=== PATIENT | female | born 1990 | race Caucasian/White ===

== ENCOUNTER 2017-09-25 23:38 | Emergency (ER) | payer OTHER ==
[~2017-09-25] VITALS: Ht 175.3 cm; Wt 72.6 kg
[~2017-09-25 23:38] MED LIST: ACYC400 PO; ALBU90OI INH; AZIT250 PO; Acidophilus La100 GM; BENZ100A PO; BIOTIN2500 MCG PO; CIPR500 PO; CODACE30 PO; CYCL10 PO; DOCU100 PO; Diflucan150 MG PO; Epipen0.3 MG/0.3 IM; FAMO20 PO; Flagyl500 MG PO; HYDACE5 PO; IBUP600 PO; IBUP800 PO; MULVITMIND PO; NAPR500 PO; NICO21TP; OXYACE5T PO; PHENA200 PO; PRED20 PO; PROM25 PO; Pepcid40 MG PO; Prednisone20 MG PO; RXHYDACE PO; SULTRIDS PO; Verotin-Gr Cap1 EACH PO; Vibramycin100 MG PO; Zithromax250 MG PO; Zofran Odt4 MG SL; [UNRECOGNIZED DRUG - OTHER]
[2017-09-26] MEDS ORDERED: CEPH500 PO (16:45)
[2018-02-04] MEDS ORDERED: Flagyl500 MG PO (20:29)
[2018-02-04] MEDS ORDERED: Diflucan100 MG PO (20:29)
[2018-05-31] MEDS ORDERED: Flagyl500 MG PO (18:41)
[2018-05-31] MEDS ORDERED: Diflucan100 MG PO (18:41)
== END 2017-09-26 02:35 | disposition left against medical advice (07) ==
LOC: ER 23:38
DX: Z53.21 Procedure and treatment not carried out due to patient leaving prior to being seen by health care provider (principal)

== ENCOUNTER 2017-09-26 15:58 | Emergency (ER) | payer OTHER ==
[~2017-09-26] VITALS: Ht 175.3 cm; Wt 72.6 kg
[2017-09-26] MEDS ORDERED: CEPH500 PO (16:45)
[2018-02-04] MEDS ORDERED: Diflucan100 MG PO (20:29)
[2018-02-04] MEDS ORDERED: Flagyl500 MG PO (20:29)
[2018-05-31] MEDS ORDERED: Flagyl500 MG PO (18:41)
[2018-05-31] MEDS ORDERED: Diflucan100 MG PO (18:41)
== END 2017-09-26 17:01 | disposition home or self-care (01) ==
LOC: ER 15:58
DX: T81.4XXA Infection following a procedure, initial encounter (principal); N76.0 Acute vaginitis; F17.210 Nicotine dependence, cigarettes, uncomplicated; Z79.899 Other long term (current) drug therapy
CPT/HCPCS: 99282

== ENCOUNTER 2017-11-02 17:20 | Emergency (ER) | payer OTHER ==
[~2017-11-02] VITALS: Ht 175.3 cm; Wt 70.8 kg
[~2017-11-02 17:20] MED LIST changes: +CEPH500 PO
[2017-11-02] MEDS ORDERED: CHOL10002 (17:29)
[2017-11-02] MEDS ORDERED: PROBIOTIC1 EAC3 PO (17:29)
[2017-11-02] MEDS ORDERED: Keflex500 MG PO (17:46)
[2017-11-02] MEDS ORDERED: Pyridium100 MG PO (17:46)
[2017-11-02 18:06] LABS: Source, Urine Voided
[2017-11-02 18:10] LABS: Appearance, Urine Hazy (Clear); Bilirubin, Urine Neg (Neg); Blood, Urine 1+ (Neg); Color, Urine Yellow (P-Yellow); Glucose Qualitative, Urine Neg (Neg); Ketones, Urine Neg (Neg); Leukocyte Esterase, Urine 3+ (Neg); Nitrite, Urine Neg (Neg); Protein, Urine 2+ (Neg); Urobilinogen, Urine NORM (Normal)
[2017-11-02 18:38] LABS: White Blood Cells, Urine 25-50 /hpf (0-5)
[2017-11-02 18:39] LABS: Bacteria Many /hpf; Squamous Epithelial Cells Mod /hpf (Few)
[2018-02-04] MEDS ORDERED: Diflucan100 MG PO (20:29)
[2018-02-04] MEDS ORDERED: Flagyl500 MG PO (20:29)
[2018-05-31] MEDS ORDERED: Flagyl500 MG PO (18:41)
[2018-05-31] MEDS ORDERED: Diflucan100 MG PO (18:41)
== END 2017-11-02 17:50 | disposition home or self-care (01) ==
LOC: ER 17:20
PROVIDERS: Nurse Practitioner Family
DX: N39.0 Urinary tract infection, site not specified (principal); Z91.09 Other allergy status, other than to drugs and biological substances
CPT/HCPCS: 81001; 81025; 87086; 99283

== ENCOUNTER 2017-11-15 12:23 | Emergency (ER) | payer OTHER ==
[~2017-11-15] VITALS: Ht 175.3 cm; Wt 70.8 kg
[~2017-11-15 12:23] MED LIST changes: +CHOL10002; +Keflex500 MG PO; +PROBIOTIC1 EAC3 PO; +Pyridium100 MG PO
[2017-11-15] MEDS ORDERED: ACYC400 PO (12:47)
[2017-11-15 12:50] LABS: Source, Urine Clean Catch
[2017-11-15 12:59] LABS: Bilirubin, Urine Neg (Neg); Blood, Urine Neg (Neg); Glucose Qualitative, Urine Neg (Neg); Ketones, Urine Neg (Neg); Leukocyte Esterase, Urine 2+ (Neg); Nitrite, Urine Neg (Neg); Protein, Urine Neg (Neg); Urobilinogen, Urine NORM (Normal)
[2017-11-15 13:10] LABS: Appearance, Urine Clear (Clear); Color, Urine Yellow (P-Yellow)
[2017-11-15 13:12] LABS: Bacteria Mod /hpf; Red Blood Cells, Urine Not Seen /hpf (0-2); Squamous Epithelial Cells Many /hpf (Few)
[2017-11-15] MEDS ORDERED: Diflucan150 MG PO (13:20)
[2018-02-04] MEDS ORDERED: Flagyl500 MG PO (20:29)
[2018-02-04] MEDS ORDERED: Diflucan100 MG PO (20:29)
[2018-05-31] MEDS ORDERED: Flagyl500 MG PO (18:41)
[2018-05-31] MEDS ORDERED: Diflucan100 MG PO (18:41)
== END 2017-11-15 13:28 | disposition home or self-care (01) ==
LOC: ER 12:23
PROVIDERS: Physician Assistant
DX: B37.9 Candidiasis, unspecified (principal); Z88.8 Allergy status to other drugs, medicaments and biological substances; Z79.899 Other long term (current) drug therapy; F17.200 Nicotine dependence, unspecified, uncomplicated
CPT/HCPCS: 81001; 81025; 87086; 99283

== ENCOUNTER → 2017-12-31 | Outpatient (CLI) | payer OTHER ==
[2018-01-01 10:45] LABS: Candida species (DNA Probe) Negative (NEGATIVE); G. vaginalis (DNA Probe) Positive (NEGATIVE); T. vaginalis (DNA Probe) Negative (NEGATIVE)
== END ==
LOC: LAB SHORT 16:38 → LAB 16:38
PROVIDERS: Obstetrics & Gynecology
DX: N76.0 Acute vaginitis (principal)
CPT/HCPCS: 87480; 87510; 87660

== ENCOUNTER 2018-02-15 17:29 | Emergency (ER) | payer OTHER ==
[~2018-02-15] VITALS: Ht 172.7 cm; Wt 68.0 kg
[~2018-02-15 17:29] MED LIST changes: +Diflucan100 MG PO
[2018-02-15] MEDS ORDERED: Diflucan100 MG PO (17:45)
[2018-02-15] MEDS ORDERED: Flagyl500 MG PO (17:45)
== END 2018-02-15 17:53 | disposition home or self-care (01) ==
LOC: ER 17:29
DX: N76.0 Acute vaginitis (principal)
CPT/HCPCS: 99283

== ENCOUNTER 2018-03-31 16:19 | Emergency (ER) | payer OTHER ==
[~2018-03-31] VITALS: Ht 175.3 cm; Wt 59.9 kg
[2018-03-31] MEDS ORDERED: ACYC400 PO (16:30)
[2018-03-31] MEDS ORDERED: Tindamax500 MG PO (17:22)
[2018-03-31 21:49] LABS: Candida species (DNA Probe) Negative (NEGATIVE); G. vaginalis (DNA Probe) Positive (NEGATIVE); T. vaginalis (DNA Probe) Negative (NEGATIVE)
== END 2018-03-31 17:35 | disposition home or self-care (01) ==
LOC: ER 16:19
PROVIDERS: Psychiatry & Neurology Psychiatry
DX: N76.0 Acute vaginitis (principal); Z88.8 Allergy status to other drugs, medicaments and biological substances; Z79.899 Other long term (current) drug therapy; F17.200 Nicotine dependence, unspecified, uncomplicated
CPT/HCPCS: 81000; 87480; 87510; 87660; 99283

== ENCOUNTER 2018-04-20 20:50 | Emergency (ER) | payer OTHER ==
[~2018-04-20] VITALS: Ht 175.3 cm; Wt 60.3 kg
[~2018-04-20 20:50] MED LIST changes: +Tindamax500 MG PO
[2018-04-20 21:29] LABS: Source, Urine Clean Catch
[2018-04-20 21:31] LABS: Bilirubin, Urine Neg (Neg); Blood, Urine 1+ (Neg); Glucose Qualitative, Urine Neg (Neg); Ketones, Urine 1+ (Neg); Leukocyte Esterase, Urine 1+ (Neg); Nitrite, Urine Neg (Neg); Protein, Urine 2+ (Neg); Urobilinogen, Urine NORM (Normal)
[2018-04-20 21:36] LABS: Appearance, Urine Clear (Clear); Color, Urine Yellow (P-Yellow)
[2018-04-20 21:37] LABS: Bacteria Many /hpf; Mucus Mod (0-Heavy); Red Blood Cells, Urine 0-2 /hpf (0-2); Squamous Epithelial Cells Mod /hpf (Few)
[2018-04-20] MEDS ORDERED: Tindamax500 MG PO (23:03)
== END 2018-04-20 23:18 | disposition home or self-care (01) ==
LOC: ER 20:50
PROVIDERS: Emergency Medicine
DX: N76.0 Acute vaginitis (principal); Z88.8 Allergy status to other drugs, medicaments and biological substances; Z79.899 Other long term (current) drug therapy; F17.200 Nicotine dependence, unspecified, uncomplicated
CPT/HCPCS: 81001; 81025; 87086; 99283

== ENCOUNTER 2018-05-05 17:24 | Emergency (ER) | payer OTHER | END 2018-05-05 17:53 | disposition left against medical advice (07) | LOC: ER 17:24 | DX: Z53.21 Procedure and treatment not carried out due to patient leaving prior to being seen by health care provider (principal) ==

== ENCOUNTER 2018-10-14 16:49 | Emergency (ER) | payer OTHER ==
[~2018-10-14] VITALS: Ht 175.3 cm; Wt 61.7 kg
[2018-10-14] MEDS ORDERED: Flagyl500 MG PO (17:16)
== END 2018-10-14 17:31 | disposition home or self-care (01) ==
LOC: ER 16:49
DX: N76.0 Acute vaginitis (principal); N34.2 Other urethritis; F17.210 Nicotine dependence, cigarettes, uncomplicated
CPT/HCPCS: 96372; 99283-25; J0696

== ENCOUNTER → 2019-02-03 | Outpatient (CLI) | payer OTHER | END | disposition home or self-care (01) | LOC: LAB SHORT 17:32 → LAB 17:32 | DX: J02.9 Acute pharyngitis, unspecified (principal) | CPT/HCPCS: 87081 ==

== ENCOUNTER 2019-07-06 18:29 | Emergency (ER) | payer OTHER ==
[~2019-07-06] VITALS: Ht 175.3 cm; Wt 70.3 kg
[2019-07-06 18:58] LABS: Source, Urine Clean Catch
[2019-07-06 18:59] LABS: BASOPHILS ABSOLUTE AUTO 0.02 K/mm3 (0.00-0.23); BASOPHILS PERCENT AUTO 0 % (0-2); EOSINOPHILS ABSOLUTE AUTO 0.07 K/mm3 (0.00-0.68); EOSINOPHILS PERCENT AUTO 1 % (0-6); Hematocrit 40.9 % (33.0-51.0); Hemoglobin 13.7 g/dL (11.5-16.0); IMMATURE GRAN ABSOLUTE AUTO 0.01 K/mm3 (0.00-0.10); IMMATURE GRAN PERCENT AUTO 0 % (0-1); LYMPHOCYTES ABSOLUTE AUTO 2.49 K/mm3 (0.84-5.20); LYMPHOCYTES PERCENT AUTO 28 % (21-46); MONOCYTES ABSOLUTE AUTO 0.58 K/mm3 (0.16-1.47); MONOCYTES PERCENT AUTO 7 % (4-13); Mean Corpuscular HGB 32.1 pg (26.0-34.0); Mean Corpuscular HGB Conc 33.5 g/dL (31.5-36.5); Mean Corpuscular Volume 96 fL (80-100); Mean Platelet Volume 9.8 fL (9.1-12.4); NEUTROPHILS PERCENT AUTO 65 % (41-73); Platelet Count 294 K/mm3 (150-400); RDW Coefficient Variation 12.1 % (11.7-14.2); RDW Standard Deviation 42.4 fL (35.1-46.3); Red Blood Cell Count 4.27 M/mm3 (3.80-5.20); White Blood Cell Count 8.97 K/mm3 (4.00-11.30)
[2019-07-06 19:01] LABS: Bilirubin, Urine Neg (Neg); Blood, Urine Neg (Neg); Glucose Qualitative, Urine Neg (Neg); Ketones, Urine Neg (Neg); Leukocyte Esterase, Urine Neg (Neg); Nitrite, Urine Neg (Neg); Protein, Urine Neg (Neg); Urobilinogen, Urine NORM (Normal)
[2019-07-06 19:03] LABS: Appearance, Urine Clear (Clear); Color, Urine Yellow (P-Yellow)
[2019-07-06 19:33] LABS: Alanine Aminotransfer (ALT/SGP 18 U/L (12-78); Albumin, Blood 4.3 g/dL (3.4-5.0); Albumin/Globulin Ratio 1.3 (0.8-1.8); Alk Phos 48 U/L (50-136); Anion Gap 6 mmol/L (6-16); Aspartate Aminotrans (AST/SGOT 9 U/L (12-37); Beta HCG, Quantitative, Serum 920 mIU/mL (0-3); Bilirubin, Total 0.2 mg/dL (0.1-1.0); Blood Urea Nitrogen 12 mg/dL (8-24); Bun/Creatinine Ratio 17.8 (12.0-20.0); CO2, Blood 25 mmol/L (21-32); Calcium, Blood 8.9 mg/dL (8.5-10.1); Chloride, Blood 106 mmol/L (98-108); Creatinine, Blood 0.67 mg/dL (0.40-1.00); Globulin, Blood 3.3 g/dL (2.2-4.0); Glomerular Filtration Rate >60 (60-); Glucose, Blood 100 mg/dL (70-99); Potassium, Blood 3.5 mmol/L (3.5-5.5); Sodium, Blood 137 mmol/L (136-145); Total Protein, Blood 7.6 g/dL (6.4-8.2)
[2019-07-06] MEDS ORDERED: PRENATAL FORMU1 EAC2 PO (20:42)
[2019-07-06] MEDS ORDERED: Macrobid 100 M100 MG PO (20:42)
== END 2019-07-06 20:52 | disposition home or self-care (01) ==
LOC: ER 18:29
PROVIDERS: Physician Assistant
DX: O20.0 Threatened abortion (principal); O23.41 Unspecified infection of urinary tract in pregnancy, first trimester; O99.331 Smoking (tobacco) complicating pregnancy, first trimester; F17.210 Nicotine dependence, cigarettes, uncomplicated; Z91.048 Other nonmedicinal substance allergy status
CPT/HCPCS: 36415; 76801; 76817; 80053; 81003; 84702; 85025; 99283-25

== ENCOUNTER → 2019-08-05 | Outpatient (CLI) | payer OTHER ==
[~2019-08-05] MED LIST changes: +Macrobid 100 M100 MG PO; +PRENATAL FORMU1 EAC2 PO
[2019-08-05 15:20] LABS: Bilirubin, Urine Neg (Neg); Blood, Urine Neg (Neg); Glucose Qualitative, Urine Neg (Neg); Ketones, Urine Neg (Neg); Leukocyte Esterase, Urine Neg (Neg); Nitrite, Urine Neg (Neg); Protein, Urine Neg (Neg); Specific Gravity, Urine 1.015 (1.003-1.022); Urobilinogen, Urine NORM (Normal); pH, Urine 6.5 (5.0-8.0)
[2019-08-05 15:23] LABS: Color, Urine Yellow (P-Yellow)
[2019-08-05 15:24] LABS: Appearance, Urine Clear (Clear)
== END | disposition home or self-care (01) ==
LOC: LAB 11:45 → LAB SHORT 11:45
PROVIDERS: Advanced Practice Midwife
DX: R30.9 Painful micturition, unspecified (principal)
CPT/HCPCS: 81003; 87086

== ENCOUNTER → 2019-08-22 | Outpatient (CLI) | payer OTHER | END | disposition home or self-care (01) | LOC: LAB SHORT 09:29 → LAB 09:29 | DX: N76.0 Acute vaginitis (principal) | CPT/HCPCS: 87070; 87205 ==

== ENCOUNTER → 2019-08-23 | Outpatient (CLI) | payer OTHER ==
[2019-08-25 20:06] LABS: CHLAMYDIA TRACHOMATIS, NAA Negative (Negative); NEISSERIA GONORRHOEAE, NAA Negative (Negative)
== END | disposition home or self-care (01) ==
LOC: LAB SHORT 18:02 → LAB 18:02
PROVIDERS: Advanced Practice Midwife
DX: Z36.89 Encounter for other specified antenatal screening (principal)
CPT/HCPCS: 87491; 87591; G0123

== ENCOUNTER → 2019-09-10 | Outpatient (CLI) | payer OTHER | END | disposition home or self-care (01) | LOC: LAB SHORT 16:52 → LAB EV 16:52 | DX: J02.9 Acute pharyngitis, unspecified (principal) | CPT/HCPCS: 87081 ==

== ENCOUNTER → 2020-02-02 | Outpatient (CLI) | payer OTHER | LOC: LAB SHORT 10:48 → LAB 10:48 | DX: Z34.83 Encounter for supervision of other normal pregnancy, third trimester (principal) | CPT/HCPCS: 87081; 87653 ==

== ENCOUNTER 2020-02-22 20:20 | Inpatient (IN) | payer OTHER ==
[~2020-02-22] VITALS: Ht 175.3 cm; Wt 77.1 kg
[2020-02-22 21:16] LABS: BASOPHILS ABSOLUTE AUTO 0.03 K/mm3 (0.00-0.23); BASOPHILS PERCENT AUTO 0 % (0-2); EOSINOPHILS ABSOLUTE AUTO 0.09 K/mm3 (0.00-0.68); EOSINOPHILS PERCENT AUTO 1 % (0-6); Hematocrit 38.6 % (33.0-51.0); Hemoglobin 12.6 g/dL (11.5-16.0); IMMATURE GRAN ABSOLUTE AUTO 0.04 K/mm3 (0.00-0.10); IMMATURE GRAN PERCENT AUTO 0 % (0-1); LYMPHOCYTES ABSOLUTE AUTO 3.22 K/mm3 (0.84-5.20); LYMPHOCYTES PERCENT AUTO 28 % (21-46); MONOCYTES PERCENT AUTO 4 % (4-13); Mean Corpuscular HGB 30.1 pg (26.0-34.0); Mean Corpuscular HGB Conc 32.6 g/dL (31.5-36.5); Mean Corpuscular Volume 92 fL (80-100); Mean Platelet Volume 11.3 fL (9.1-12.4); NEUTROPHILS ABSOLUTE AUTO 7.64 K/mm3 (1.96-9.15); NEUTROPHILS PERCENT AUTO 66 % (41-73); Platelet Count 298 K/mm3 (150-400); RDW Coefficient Variation 13.8 % (11.7-14.2); RDW Standard Deviation 46.7 fL (35.1-46.3); Red Blood Cell Count 4.19 M/mm3 (3.80-5.20); White Blood Cell Count 11.52 K/mm3 (4.00-11.30)
[2020-02-24 05:53] LABS: Hematocrit 33.7 % (33.0-51.0); Hemoglobin 10.9 g/dL (11.5-16.0); Mean Corpuscular HGB 29.8 pg (26.0-34.0); Mean Corpuscular HGB Conc 32.3 g/dL (31.5-36.5); Mean Corpuscular Volume 92 fL (80-100); Mean Platelet Volume 10.7 fL (9.1-12.4); Platelet Count 245 K/mm3 (150-400); RDW Coefficient Variation 13.8 % (11.7-14.2); RDW Standard Deviation 46.3 fL (35.1-46.3); Red Blood Cell Count 3.66 M/mm3 (3.80-5.20); White Blood Cell Count 11.92 K/mm3 (4.00-11.30)
--- NOTE | 2020-02-24 09:06 | NUR ---
IBUPROFEN AND COLACE RX CALLED INTO [facility]
--- NOTE | 2020-02-24 09:10 | NUR ---
ASSIST BABY SLEEPING IN MOM'S ARMS. MOM REPORTS,"BABY IS NURSING WELL LATCH IS NOT PAINFUL AND BABY NURSES UP TO 45 MINUTES". PT. HAS NO QUESTIONS. DISCUSSED NEW BEGININGS BOOK. MOM VERY LOVING WITH.
[2020-02-24] MEDS ORDERED: IBUP800 PO (11:40)
[2020-02-24] MEDS ORDERED: COLACE100 MG PO (11:41)
== END 2020-02-24 12:40 | disposition home or self-care (01) | DRG 807 ==
LOC: OBS 20:20 → BC 20:21 → OBS 20:51 → BC 20:55
PROVIDERS: ADMIT Advanced Practice Midwife
PROC: 3E0P7VZ Introduction of Hormone into Female Reproductive, Via Natural or Artificial Opening (ICD-10-PCS; 2020-02-22)
PROC: 10E0XZZ Delivery of Products of Conception, External Approach (ICD-10-PCS; principal; 2020-02-23)
PROC: 0HQ9XZZ Repair Perineum Skin, External Approach (ICD-10-PCS; 2020-02-23)
PROC: 3E033VJ Introduction of Other Hormone into Peripheral Vein, Percutaneous Approach (ICD-10-PCS; 2020-02-23)
PROC: 10907ZC Drainage of Amniotic Fluid, Therapeutic from Products of Conception, Via Natural or Artificial Opening (ICD-10-PCS; 2020-02-23)
DX: O70.0 First degree perineal laceration during delivery (principal); Z37.0 Single live birth; O76 Abnormality in fetal heart rate and rhythm complicating labor and delivery; Z3A.39 39 weeks gestation of pregnancy; Z87.891 Personal history of nicotine dependence
CPT/HCPCS: 36415; 85025; 85027; 86850; 86900; 86901; J1885; J2590; J3010; J7120

== ENCOUNTER 2020-07-24 11:02 | Observation (INO) | payer OTHER ==
[~2020-07-24] VITALS: Ht 172.7 cm; Wt 73.5 kg
[~2020-07-24 11:02] MED LIST changes: +COLACE100 MG PO
[2020-07-24 11:57] LABS: BASOPHILS ABSOLUTE AUTO 0.02 K/mm3 (0.00-0.23); BASOPHILS PERCENT AUTO 0 % (0-2); EOSINOPHILS ABSOLUTE AUTO 0.11 K/mm3 (0.00-0.68); EOSINOPHILS PERCENT AUTO 2 % (0-6); Hematocrit 39.7 % (33.0-51.0); IMMATURE GRAN ABSOLUTE AUTO 0.02 K/mm3 (0.00-0.10); IMMATURE GRAN PERCENT AUTO 0 % (0-1); LYMPHOCYTES ABSOLUTE AUTO 1.92 K/mm3 (0.84-5.20); LYMPHOCYTES PERCENT AUTO 29 % (21-46); MONOCYTES ABSOLUTE AUTO 0.46 K/mm3 (0.16-1.47); MONOCYTES PERCENT AUTO 7 % (4-13); Mean Corpuscular HGB Conc 32.7 g/dL (31.5-36.5); Mean Corpuscular Volume 92 fL (80-100); Mean Platelet Volume 9.4 fL (9.1-12.4); NEUTROPHILS ABSOLUTE AUTO 4.17 K/mm3 (1.96-9.15); NEUTROPHILS PERCENT AUTO 62 % (41-73); Platelet Count 314 K/mm3 (150-400); RDW Standard Deviation 44.7 fL (35.1-46.3); Red Blood Cell Count 4.33 M/mm3 (3.80-5.20)
[2020-07-24 12:18] LABS: Alanine Aminotransfer (ALT/SGP 17 U/L (12-78); Albumin, Blood 3.6 g/dL (3.4-5.0); Albumin/Globulin Ratio 1.1 (0.8-1.8); Alk Phos 44 U/L (50-136); Anion Gap 4 mmol/L (6-16); Aspartate Aminotrans (AST/SGOT 8 U/L (12-37); Bilirubin, Total 0.3 mg/dL (0.1-1.0); Blood Urea Nitrogen 9 mg/dL (8-24); Bun/Creatinine Ratio 13.6 (12.0-20.0); CO2, Blood 28 mmol/L (21-32); Calcium, Blood 8.9 mg/dL (8.5-10.1); Chloride, Blood 109 mmol/L (98-108); Creatinine, Blood 0.66 mg/dL (0.40-1.00); Globulin, Blood 3.4 g/dL (2.2-4.0); Glomerular Filtration Rate >60 (60-); Glucose, Blood 93 mg/dL (70-99); Potassium, Blood 3.9 mmol/L (3.5-5.5); Sodium, Blood 141 mmol/L (136-145)
[2020-07-24 12:30] LABS: Beta HCG, Quantitative, Serum 102580 mIU/mL (0-3)
--- NOTE | 2020-07-24 20:00 | NUR ---
SPOKE WITH DR. BECKER REGARDING CURRENT PATIENT CONDITION AND PLAN OF CARE/FURTHER TREATMENTS. WILL MONITOR VS PER UNIT PROTOCOL. IF PATIENT DEVELOPS A FEVER OF 100.3 OR GREATER, ORDER TO OBTAIN BLOOD CULTURES X2, CBC, CMP AND LACTATE + NOTIFTY FOR POSSIBLE CHANGE IN ABX TREATMENT. WILL CLOSELY MONITOR FOR BLEEDING. ORDER TO NOTIFY DR. BECKER IF PATIENT BEGINS BLEEDING HEAVILY. PLAN FOR DR. BECKER TO ASSESS PATIENT TOMORROW MORNING AT 0800.
--- NOTE | 2020-07-24 21:30 | NUR ---
PT ARRIVED TO ROOM FROM PACU AT APPROX 2019. S/P D&C. PT A&O X4. VSS. PT C/O BEING HUNGRY. SUPERVISIOR NOTIFIED OF NEED FOR TRAY. PT DELMY REG DIET AND PO FLUIDS. OUT OF BED TO BATHROOM WITH SBA. SCANT AMOUNT OF BLOOD NOTED ON JOSS PAD. DENIES ABD PAIN BUT REPORTS BURNING IN VAGINA. PLAN TO MONITOR VS, AMOUNT OF BLEEDING AND ADMINISTER MEDS PER EMAR.
--- NOTE | 2020-07-24 22:00 | NUR ---
PT REQUESTING TO GO OUTSIDE WITH FRIEND TO SMOKE. PT EDUCATED ON SMOKING CESSATION. PT AWARE OF RISK FOR WORSENING INFECTION AND DELAYED HEALING. PT VERBALIZED UNDERSTANDING OF INFORMATION PROVIDED. PT STILL ADMAMANT ON SMOKING.
--- NOTE | 2020-07-24 23:00 | NUR ---
PT BACK IN ROOM AT APPROX 2225. PT REPORTS AFTER SMOKING, SHE BEGAN TO FEEL VERY FAINT AND DIZZY. FRIEND WAS THERE TO ASSIST PATIENT INTO A WHEELCHAIR. VSS UPON ARRIVAL TO ROOM. PT REPORTS RECENT EPISODES OF FAINTING OR FEELING FAINT. SHE REPORTS SHE HAS ALRADY SPOKEN WITH HER PCP ABOUT HER SYMPTOMS.
[2020-07-25 05:13] LABS: BASOPHILS ABSOLUTE AUTO 0.02 K/mm3 (0.00-0.23); BASOPHILS PERCENT AUTO 0 % (0-2); EOSINOPHILS ABSOLUTE AUTO 0.01 K/mm3 (0.00-0.68); EOSINOPHILS PERCENT AUTO 0 % (0-6); Hematocrit 29.8 % (33.0-51.0); Hemoglobin 9.9 g/dL (11.5-16.0); IMMATURE GRAN ABSOLUTE AUTO 0.05 K/mm3 (0.00-0.10); IMMATURE GRAN PERCENT AUTO 0 % (0-1); LYMPHOCYTES ABSOLUTE AUTO 1.61 K/mm3 (0.84-5.20); LYMPHOCYTES PERCENT AUTO 11 % (21-46); MONOCYTES ABSOLUTE AUTO 0.57 K/mm3 (0.16-1.47); MONOCYTES PERCENT AUTO 4 % (4-13); Mean Corpuscular HGB 30.6 pg (26.0-34.0); Mean Corpuscular HGB Conc 33.2 g/dL (31.5-36.5); Mean Corpuscular Volume 92 fL (80-100); Mean Platelet Volume 9.6 fL (9.1-12.4); NEUTROPHILS ABSOLUTE AUTO 11.99 K/mm3 (1.96-9.15); NEUTROPHILS PERCENT AUTO 84 % (41-73); Platelet Count 281 K/mm3 (150-400); RDW Coefficient Variation 13.1 % (11.7-14.2); RDW Standard Deviation 44.5 fL (35.1-46.3); Red Blood Cell Count 3.24 M/mm3 (3.80-5.20); White Blood Cell Count 14.25 K/mm3 (4.00-11.30)
--- NOTE | 2020-07-25 05:49 | NUR ---
SHIFT SUMMARY: PT POD#1 FOR D&C. SCANT AMOUNT OF BLOOD NOTED ON JOSS PADS. PAD HAS BEEN CHANGED 3 TIMES OVER NIGHT. PT HAS VOIDED TWICE. EACH TIME THERE HAS BEEN RED BLOOD IN TOILET MIXED WITH URINE. BLOOD APPEARS BRIGHT RED. PT DENIES DIZZINESS WHILE AMBULATING. INDEPENDENT IN ROOM. VSS T/O SHIFT. AFEBRILE. PT GIVEN SCHEDULED MEHTERGINE AND DOXYCYCLINE PER EMAR. DENIES N/V. DELMY REG DIET. DENIES PAIN. PLAN FOR DR. BECKER TO COME IN AT 0800. POSS DISCHARGE.
--- NOTE | 2020-07-25 10:40 | NUR ---
pt request to go outside to smoke. discussed with patient that it is was recommended by physician that she not go outside. pt states she will go outside for a short time to get fresh air
--- NOTE | 2020-07-25 11:47 | NUR ---
1135 PT RETURNED TO ROOM, DENIES ANY PAIN, BLEEDING, DIZZINESS OR SOB WHILE AWAY FROM ROOM
--- NOTE | 2020-07-25 11:48 | NUR ---
PT STATES A FRIEND OF HERS IS OUTSIDE TO DELIVER COFFEE AND THAT SHE IS GOING TO WALK OUTSIDE TO MEET HER
--- NOTE | 2020-07-25 12:15 | NUR ---
RETURNED TO ROOM, PT DENIES ANY NAUSEA, PAIN, DIZZINESS OR BLEEDING WHEN AMBULATED OUTSIDE
[2020-07-25 12:51] LABS: BASOPHILS ABSOLUTE AUTO 0.02 K/mm3 (0.00-0.23); BASOPHILS PERCENT AUTO 0 % (0-2); EOSINOPHILS ABSOLUTE AUTO 0.05 K/mm3 (0.00-0.68); EOSINOPHILS PERCENT AUTO 1 % (0-6); Hematocrit 31.2 % (33.0-51.0); Hemoglobin 10.2 g/dL (11.5-16.0); IMMATURE GRAN ABSOLUTE AUTO 0.04 K/mm3 (0.00-0.10); IMMATURE GRAN PERCENT AUTO 0 % (0-1); LYMPHOCYTES ABSOLUTE AUTO 2.82 K/mm3 (0.84-5.20); LYMPHOCYTES PERCENT AUTO 26 % (21-46); MONOCYTES PERCENT AUTO 7 % (4-13); Mean Corpuscular HGB 30.1 pg (26.0-34.0); Mean Corpuscular HGB Conc 32.7 g/dL (31.5-36.5); Mean Corpuscular Volume 92 fL (80-100); Mean Platelet Volume 9.8 fL (9.1-12.4); NEUTROPHILS ABSOLUTE AUTO 7.34 K/mm3 (1.96-9.15); NEUTROPHILS PERCENT AUTO 66 % (41-73); Platelet Count 296 K/mm3 (150-400); RDW Coefficient Variation 13.2 % (11.7-14.2); RDW Standard Deviation 44.5 fL (35.1-46.3); Red Blood Cell Count 3.39 M/mm3 (3.80-5.20); White Blood Cell Count 11.07 K/mm3 (4.00-11.30)
[2020-07-25] MEDS ORDERED: ACET500 PO (14:28)
[2020-07-25] MEDS ORDERED: DOXY100 PO (14:29)
[2020-07-25] MEDS ORDERED: MISO200 PO (14:33)
[2020-07-25] MEDS ORDERED: Aspir 8181 MG PO (14:34)
[2020-07-25] MEDS ORDERED: Percocet 5-3251 EACH PO (14:35)
[2020-07-25] MEDS ORDERED: MIRALAX17 GM PO (14:36)
--- NOTE | 2020-07-25 15:16 | NUR ---
1450 DISCHARGE PT STATES MILD BACK PAIN BUT THAT IT HAS LESSENED. PT VOIDING YELLOW URINE WITH A FEW STREAKS OF BLOOD. JOSS PAD WITH SCANT VAGINAL DRAINAGE. PT DENIES DIZZINESS OR LIGHTHEADEDNESS WHEN AMBULATING.
[2020-07-27 15:21] LABS: Performing Lab SYMBIODX; Test Name TISSUE BLOCK
== END 2020-07-25 15:09 | disposition home or self-care (01) ==
LOC: ER 11:02 → SURS 11:03 → MEDS 11:03 → ER 11:03 → MEDS 20:18 → SURS 20:18
PROVIDERS: Physician Assistant; ADMIT Obstetrics & Gynecology
DX: O03.4 Incomplete spontaneous abortion without complication (principal); O62.2 Other uterine inertia; F17.210 Nicotine dependence, cigarettes, uncomplicated; G89.29 Other chronic pain; M54.2 Cervicalgia; J30.2 Other seasonal allergic rhinitis; Z91.09 Other allergy status, other than to drugs and biological substances; Z20.828 Contact with and (suspected) exposure to other viral communicable diseases; Z79.899 Other long term (current) drug therapy; Z23 Encounter for immunization
CPT/HCPCS: 36415; 76801; 76857; 76998; 80053; 81000; 81025; 83605; 84702; 85025; 86850; 86900; 86901; 87040; 88305; 96361; 96374; 96375; 99285-25; J1100; J1885; J2060; J2210; J2250; J2405; J2704; J2765; J3010; J7030; J7060; J7120; U0004

== ENCOUNTER 2020-07-31 15:46 | Emergency (ER) | payer OTHER ==
[~2020-07-31] VITALS: Ht 172.7 cm; Wt 73.5 kg
[~2020-07-31 15:46] MED LIST changes: +ACET500 PO; +Aspir 8181 MG PO; +DOXY100 PO; +MIRALAX17 GM PO; +MISO200 PO; +Percocet 5-3251 EACH PO
[2020-07-31 16:54] LABS: BASOPHILS ABSOLUTE AUTO 0.03 K/mm3 (0.00-0.23); BASOPHILS PERCENT AUTO 0 % (0-2); EOSINOPHILS ABSOLUTE AUTO 0.09 K/mm3 (0.00-0.68); EOSINOPHILS PERCENT AUTO 1 % (0-6); Hematocrit 30.7 % (33.0-51.0); Hemoglobin 10.1 g/dL (11.5-16.0); IMMATURE GRAN ABSOLUTE AUTO 0.01 K/mm3 (0.00-0.10); IMMATURE GRAN PERCENT AUTO 0 % (0-1); LYMPHOCYTES ABSOLUTE AUTO 2.46 K/mm3 (0.84-5.20); LYMPHOCYTES PERCENT AUTO 35 % (21-46); MONOCYTES PERCENT AUTO 6 % (4-13); Mean Corpuscular HGB 30.6 pg (26.0-34.0); Mean Corpuscular HGB Conc 32.9 g/dL (31.5-36.5); Mean Corpuscular Volume 93 fL (80-100); Mean Platelet Volume 9.2 fL (9.1-12.4); NEUTROPHILS ABSOLUTE AUTO 4.06 K/mm3 (1.96-9.15); NEUTROPHILS PERCENT AUTO 58 % (41-73); Platelet Count 424 K/mm3 (150-400); RDW Standard Deviation 47.4 fL (35.1-46.3); White Blood Cell Count 7.05 K/mm3 (4.00-11.30)
[2020-07-31 17:32] LABS: Alanine Aminotransfer (ALT/SGP 20 U/L (12-78); Albumin, Blood 3.7 g/dL (3.4-5.0); Albumin/Globulin Ratio 1.1 (0.8-1.8); Alk Phos 53 U/L (50-136); Anion Gap 7 mmol/L (6-16); Aspartate Aminotrans (AST/SGOT 13 U/L (12-37); Bilirubin, Total 0.3 mg/dL (0.1-1.0); Blood Urea Nitrogen 9 mg/dL (8-24); Bun/Creatinine Ratio 12.8 (12.0-20.0); CO2, Blood 27 mmol/L (21-32); Calcium, Blood 9.1 mg/dL (8.5-10.1); Chloride, Blood 111 mmol/L (98-108); Creatinine, Blood 0.71 mg/dL (0.40-1.00); Globulin, Blood 3.4 g/dL (2.2-4.0); Glomerular Filtration Rate >60 (60-); Glucose, Blood 85 mg/dL (70-99); Potassium, Blood 3.6 mmol/L (3.5-5.5); Sodium, Blood 145 mmol/L (136-145); Total Protein, Blood 7.1 g/dL (6.4-8.2)
[2020-07-31] MEDS ORDERED: KETO10 PO (17:35)
[2020-07-31] MEDS ORDERED: ONDA4ODT MM (17:35)
== END 2020-07-31 18:05 | disposition home or self-care (01) ==
LOC: ER 15:46
PROVIDERS: Physician Assistant
DX: N71.9 Inflammatory disease of uterus, unspecified (principal); F17.200 Nicotine dependence, unspecified, uncomplicated; Z91.09 Other allergy status, other than to drugs and biological substances; Z79.899 Other long term (current) drug therapy; Z79.82 Long term (current) use of aspirin
CPT/HCPCS: 36415; 76856; 80053; 85025; 86850; 86900; 86901; 96361; 96372-59; 96374; 96375; 99284-25; J1885; J2210; J2405; J7030

== ENCOUNTER → 2021-04-18 | Outpatient (CLI) | payer OTHER ==
[~2021-04-18] MED LIST changes: +KETO10 PO; +ONDA4ODT MM; +PRENATAL TABLE1 EAC2 PO
== END | disposition home or self-care (01) ==
LOC: LAB SHORT 13:14 → LAB 13:14
DX: O09.92 Supervision of high risk pregnancy, unspecified, second trimester (principal)
CPT/HCPCS: 87081; 87150

== ENCOUNTER 2021-05-09 00:56 | Inpatient (IN) | payer OTHER ==
[~2021-05-09] VITALS: Ht 175.3 cm; Wt 82.3 kg
[~2021-05-09 00:56] MED LIST changes: -PRENATAL TABLE1 EAC2 PO
[2021-05-09 01:54] LABS: BASOPHILS ABSOLUTE AUTO 0.04 K/mm3 (0.00-0.23); BASOPHILS PERCENT AUTO 0 % (0-2); EOSINOPHILS ABSOLUTE AUTO 0.16 K/mm3 (0.00-0.68); EOSINOPHILS PERCENT AUTO 1 % (0-6); Hematocrit 34.4 % (33.0-51.0); Hemoglobin 11.5 g/dL (11.5-16.0); IMMATURE GRAN ABSOLUTE AUTO 0.05 K/mm3 (0.00-0.10); IMMATURE GRAN PERCENT AUTO 0 % (0-1); LYMPHOCYTES ABSOLUTE AUTO 2.92 K/mm3 (0.84-5.20); LYMPHOCYTES PERCENT AUTO 24 % (21-46); MONOCYTES ABSOLUTE AUTO 0.95 K/mm3 (0.16-1.47); MONOCYTES PERCENT AUTO 8 % (4-13); Mean Corpuscular HGB 29.5 pg (26.0-34.0); Mean Corpuscular HGB Conc 33.4 g/dL (31.5-36.5); Mean Corpuscular Volume 88 fL (80-100); Mean Platelet Volume 10.1 fL (9.1-12.4); NEUTROPHILS ABSOLUTE AUTO 8.19 K/mm3 (1.96-9.15); NEUTROPHILS PERCENT AUTO 67 % (41-73); Platelet Count 278 K/mm3 (150-400); RDW Coefficient Variation 14.1 % (11.7-14.2); RDW Standard Deviation 45.1 fL (35.1-46.3); White Blood Cell Count 12.31 K/mm3 (4.00-11.30)
[2021-05-09] MEDS ORDERED: PRENATAL TABLE1 EAC2 PO (02:00)
[2021-05-09 02:43] LABS: SARS-Cov-2 (COVID-19) PCR, MMC NEGATIVE (NEGATIVE)
[2021-05-10] MEDS ORDERED: DOCU100 PO (07:10)
--- NOTE | 2021-05-10 08:45 | NUR ---
BR PUMP SCRIPT FOR BR PUMP; PUMP GIVEN AND EXPLAINED - SIGNED - PT DENIED QUESTIONS IF QUESTIONS BRING TO [facility] APPOINTMENT FOR ASSISTANCE; PT VERBALIZED UNDERSTANDING DENIED FURTHER QUESTIONS AT THIS TIME
== END 2021-05-10 11:00 | disposition home or self-care (01) | DRG 806 ==
LOC: BC 00:56 → OBS 00:56 → BC 00:57 → OBS 01:35 → BC 01:35
PROVIDERS: ADMIT Obstetrics & Gynecology
PROC: 10E0XZZ Delivery of Products of Conception, External Approach (ICD-10-PCS; principal; 2021-05-09)
DX: O99.814 Abnormal glucose complicating childbirth (principal); O98.32 Other infections with a predominantly sexual mode of transmission complicating childbirth; Z37.0 Single live birth; Z3A.38 38 weeks gestation of pregnancy; Z20.822 Contact with and (suspected) exposure to COVID-19; O71.82 Other specified trauma to perineum and vulva; A60.00 Herpesviral infection of urogenital system, unspecified; Z87.891 Personal history of nicotine dependence; Z91.048 Other nonmedicinal substance allergy status; Z79.899 Other long term (current) drug therapy
CPT/HCPCS: 36415; 59025; 85025; 86850; 86900; 86901; A9270; J1885; J2210; J2590; J3010; U0004

== ENCOUNTER → 2021-07-31 | Outpatient (CLI) | payer OTHER ==
[~2021-07-31] MED LIST changes: +PRENATAL TABLE1 EAC2 PO
[2021-07-31 13:09] LABS: Source, Urine Voided
[2021-07-31 15:25] LABS: Appearance, Urine Clear (Clear); Bilirubin, Urine Neg (Neg); Blood, Urine Neg (Neg); Color, Urine Yellow (P-Yellow); Glucose Qualitative, Urine Neg (Neg); Ketones, Urine Neg (Neg); Leukocyte Esterase, Urine 1+ (Neg); Nitrite, Urine Neg (Neg); Protein, Urine Neg (Neg); Specific Gravity, Urine 1.005 (1.003-1.022); Urobilinogen, Urine NORM (Normal)
[2021-07-31 15:34] LABS: Red Blood Cells, Urine 0-2 /hpf (0-2)
[2021-07-31 15:35] LABS: Bacteria Few /hpf; Squamous Epithelial Cells Few /hpf (Few)
[2021-08-01 11:07] LABS: Candida species (DNA Probe) Negative (NEGATIVE); G. vaginalis (DNA Probe) Positive (NEGATIVE); T. vaginalis (DNA Probe) Negative (NEGATIVE)
== END | disposition home or self-care (01) ==
LOC: LAB SHORT 09:20
PROVIDERS: Physician Assistant Medical
DX: N89.8 Other specified noninflammatory disorders of vagina (principal)
CPT/HCPCS: 81001; 87086; 87480; 87510; 87660

== ENCOUNTER → 2021-08-02 | Outpatient (CLI) | payer OTHER ==
[2021-08-04 01:09] LABS: CHLAMYDIA TRACHOMATIS, NAA Negative (Negative)
== END ==
LOC: LAB SHORT 13:30
PROVIDERS: Advanced Practice Midwife
DX: Z11.3 Encounter for screening for infections with a predominantly sexual mode of transmission (principal); Z91.048 Other nonmedicinal substance allergy status
CPT/HCPCS: 87491; 87591

== ENCOUNTER → 2021-10-09 | Outpatient (CLI) | payer OTHER ==
[2021-10-10 09:56] LABS: Candida species (DNA Probe) Negative (NEGATIVE); G. vaginalis (DNA Probe) Positive (NEGATIVE); T. vaginalis (DNA Probe) Negative (NEGATIVE)
== END | disposition home or self-care (01) ==
LOC: LAB SHORT 11:00
PROVIDERS: Obstetrics & Gynecology
DX: N76.0 Acute vaginitis (principal)
CPT/HCPCS: 87480; 87510; 87660

== ENCOUNTER → 2022-02-17 | Outpatient (CLI) | payer OTHER ==
[2022-02-18 10:48] LABS: Candida species (DNA Probe) Negative (NEGATIVE); G. vaginalis (DNA Probe) Positive (NEGATIVE); T. vaginalis (DNA Probe) Negative (NEGATIVE)
== END | disposition home or self-care (01) ==
LOC: LAB SHORT 15:01 → LAB 15:01
PROVIDERS: Advanced Practice Midwife
DX: N76.0 Acute vaginitis (principal)
CPT/HCPCS: 87480; 87510; 87660

== ENCOUNTER → 2022-06-21 | Outpatient (CLI) | payer OTHER | END | disposition home or self-care (01) | LOC: LAB 12:03 → LAB SHORT 12:03 | DX: N39.0 Urinary tract infection, site not specified (principal) | CPT/HCPCS: 87086 ==

== ENCOUNTER → 2022-11-18 | Outpatient (CLI) | payer OTHER ==
[2022-11-18 13:50] LABS: Candida species (DNA Probe) Negative (NEGATIVE); G. vaginalis (DNA Probe) Positive (NEGATIVE); T. vaginalis (DNA Probe) Negative (NEGATIVE)
== END | disposition home or self-care (01) ==
LOC: LAB 11:02 → LAB SHORT 11:02
PROVIDERS: Obstetrics & Gynecology
DX: N76.0 Acute vaginitis (principal)
CPT/HCPCS: 87480; 87510; 87660

== ENCOUNTER → 2022-12-03 | Outpatient (CLI) | payer OTHER ==
[2022-12-04 07:42] LABS: Candida species (DNA Probe) Negative (NEGATIVE); G. vaginalis (DNA Probe) Positive (NEGATIVE); T. vaginalis (DNA Probe) Negative (NEGATIVE)
== END | disposition home or self-care (01) ==
LOC: LAB 13:44 → LAB SHORT 13:44
PROVIDERS: Obstetrics & Gynecology
DX: N76.0 Acute vaginitis (principal)
CPT/HCPCS: 87480; 87510; 87660

== ENCOUNTER 2023-04-27 14:05 | Inpatient (IN) | payer OTHER ==
[~2023-04-27] VITALS: Ht 175.3 cm; Wt 85.0 kg
[2023-04-27 14:24] VITALS: BP 135/81
[2023-04-27 14:57] LABS: BASOPHILS ABSOLUTE AUTO 0.02 K/mm3 (0.00-0.23); BASOPHILS PERCENT AUTO 0 % (0-2); EOSINOPHILS ABSOLUTE AUTO 0.02 K/mm3 (0.00-0.68); EOSINOPHILS PERCENT AUTO 0 % (0-6); Hematocrit 36.1 % (33.0-51.0); Hemoglobin 12.3 g/dL (11.5-16.0); IMMATURE GRAN ABSOLUTE AUTO 0.04 K/mm3 (0.00-0.10); IMMATURE GRAN PERCENT AUTO 0 % (0-1); LYMPHOCYTES ABSOLUTE AUTO 1.93 K/mm3 (0.84-5.20); LYMPHOCYTES PERCENT AUTO 17 % (21-46); MONOCYTES ABSOLUTE AUTO 0.59 K/mm3 (0.16-1.47); MONOCYTES PERCENT AUTO 5 % (4-13); Mean Corpuscular HGB 31.2 pg (26.0-34.0); Mean Corpuscular HGB Conc 34.1 g/dL (31.5-36.5); Mean Corpuscular Volume 92 fL (80-100); NEUTROPHILS ABSOLUTE AUTO 9.05 K/mm3 (1.96-9.15); NEUTROPHILS PERCENT AUTO 78 % (41-73); Platelet Count 329 K/mm3 (150-400); RDW Coefficient Variation 13.5 % (11.7-14.2); RDW Standard Deviation 45.5 fL (35.1-46.3); Red Blood Cell Count 3.94 M/mm3 (3.80-5.20); White Blood Cell Count 11.65 K/mm3 (4.00-11.30)
[2023-04-27 15:54] VITALS: BP 140/85
[2023-04-27 19:23] VITALS: BP 143/84
--- NOTE | 2023-04-27 23:23 | NUR ---
[employer] NOTIFIED OF AND POOR CARE. AT THIS POINT THEY ARE CLEARED BY SCREENING BUT THEY WILL CONTACT IF THEY NEED TO INVESTIGATE FURTHER
[2023-04-28] VITALS (7 sets, daily range): BP systolic 118–137; BP diastolic 78–94
--- NOTE | 2023-04-28 19:15 | NUR ---
ASSSUMED CARE OF PT AT 1900. REPORT RECEIVED FROM FABIEN MORGAN. PT IS CALLING FOR HELP WITH PAPERWORK. SHE DECLINES ANY NEEDS AT THIS TIME EXCEPT FOR A SNACK. DISCUSSED POC FOR THE NIGHT.
[2023-04-29 03:45] VITALS: BP 136/66
[2023-04-29 07:26] VITALS: BP 142/79
[2023-04-29] MEDS ORDERED: IBUP800 (09:23)
== END 2023-04-29 10:14 | disposition home or self-care (01) | DRG 807 ==
LOC: OBS 14:05 → BC 14:17 → OBS 14:25 → BC 14:26
PROVIDERS: ADMIT Obstetrics & Gynecology
PROC: 10E0XZZ Delivery of Products of Conception, External Approach (ICD-10-PCS; principal; 2023-04-27)
DX: O98.32 Other infections with a predominantly sexual mode of transmission complicating childbirth (principal); Z37.0 Single live birth; M54.9 Dorsalgia, unspecified; Z3A.38 38 weeks gestation of pregnancy; Z87.891 Personal history of nicotine dependence; Z88.8 Allergy status to other drugs, medicaments and biological substances; Z91.048 Other nonmedicinal substance allergy status; Z67.10 Type A blood, Rh positive
CPT/HCPCS: 36415; 59414; 85025; 86850; 86900; 86901; A9270; J1885; J2590; J3010

== ENCOUNTER → 2023-08-26 | Outpatient (CLI) | payer OTHER ==
[~2023-08-26] MED LIST changes: +IBUP800
[2023-08-27 12:19] LABS: Candida species (DNA Probe) Negative (NEGATIVE); G. vaginalis (DNA Probe) Positive (NEGATIVE); T. vaginalis (DNA Probe) Negative (NEGATIVE)
== END | disposition home or self-care (01) ==
LOC: LAB SHORT 14:06 → LAB 14:06
PROVIDERS: Obstetrics & Gynecology
DX: N76.0 Acute vaginitis (principal)
CPT/HCPCS: 87480; 87510; 87660

== ENCOUNTER → 2023-09-17 | Outpatient (CLI) | payer OTHER ==
[2023-09-17 15:32] LABS: Source, Urine Clean Catch
[2023-09-17 17:13] LABS: Appearance, Urine Clear (Clear); Bilirubin, Urine Neg (Neg); Blood, Urine Neg (Neg); Color, Urine Yellow (P-Yellow); Glucose Qualitative, Urine Neg (Neg); Ketones, Urine Neg (Neg); Leukocyte Esterase, Urine Neg (Neg); Nitrite, Urine Neg (Neg); Protein, Urine 1+ (Neg); Urobilinogen, Urine NORM (Normal)
[2023-09-18 12:10] LABS: Candida species (DNA Probe) Negative (NEGATIVE); G. vaginalis (DNA Probe) Positive (NEGATIVE); T. vaginalis (DNA Probe) Negative (NEGATIVE)
== END | disposition home or self-care (01) ==
LOC: LAB 15:31 → LAB SHORT 15:31
PROVIDERS: Obstetrics & Gynecology
DX: N76.0 Acute vaginitis (principal); R30.0 Dysuria
CPT/HCPCS: 87480; 87510; 87660

== ENCOUNTER → 2023-10-20 | Outpatient (CLI) | payer OTHER ==
[2023-10-21 11:43] LABS: G. vaginalis (DNA Probe) Positive (NEGATIVE); T. vaginalis (DNA Probe) Negative (NEGATIVE)
[2023-10-21 11:44] LABS: Candida species (DNA Probe) Negative (NEGATIVE)
== END ==
LOC: LAB SHORT 16:11 → LAB 16:11
PROVIDERS: Obstetrics & Gynecology
DX: N76.0 Acute vaginitis (principal)
CPT/HCPCS: 87480; 87510; 87660

== ENCOUNTER → 2023-11-09 | Outpatient (CLI) | payer OTHER ==
[2023-11-09 14:54] LABS: Bacterial Vaginosis PCR Positive (NEGATIVE); Candida Group, PCR NOT DETECTED (NOT DETECT); Candida glabrata-krusei, PCR NOT DETECTED (NOT DETECT)
== END | disposition home or self-care (01) ==
LOC: LAB SHORT 09:56
PROVIDERS: Obstetrics & Gynecology
DX: N76.0 Acute vaginitis (principal)
CPT/HCPCS: 87481; 87661; 87801

== ENCOUNTER → 2023-12-21 | Outpatient (CLI) | payer OTHER ==
[2023-12-21 16:31] LABS: Candida Group, PCR NOT DETECTED (NOT DETECT)
[2023-12-21 17:11] LABS: Bacterial Vaginosis PCR Positive (NEGATIVE); Candida glabrata-krusei, PCR DETECTED (NOT DETECT)
== END | disposition home or self-care (01) ==
LOC: LAB 13:49 → LAB SHORT 13:49
PROVIDERS: Obstetrics & Gynecology
DX: N76.0 Acute vaginitis (principal)
CPT/HCPCS: 87481; 87661; 87801

== ENCOUNTER → 2024-04-20 | Outpatient (CLI) | payer OTHER ==
[2024-04-20 20:36] LABS: Candida Group, PCR NOT DETECTED (NOT DETECT); Candida glabrata-krusei, PCR NOT DETECTED (NOT DETECT)
[2024-04-20 21:22] LABS: Bacterial Vaginosis PCR Positive (NEGATIVE)
== END ==
LOC: LAB SHORT 13:49 → LAB 13:49
PROVIDERS: Obstetrics & Gynecology
DX: N76.0 Acute vaginitis (principal)
CPT/HCPCS: 87481; 87661; 87801

== ENCOUNTER → 2025-06-09 | Outpatient (CLI) | payer OTHER ==
[2025-06-09 18:41] LABS: Bacterial Vaginosis PCR Negative (NEGATIVE); Candida glabrata-krusei, PCR NOT DETECTED (NOT DETECT)
[2025-06-09 18:49] LABS: Candida Group, PCR DETECTED (NOT DETECT)
== END ==
LOC: LAB 15:23 → LAB SHORT 15:23
PROVIDERS: Obstetrics & Gynecology
DX: N76.0 Acute vaginitis (principal)
CPT/HCPCS: 81515

== ENCOUNTER → 2025-07-25 | Outpatient (CLI) | payer OTHER ==
[2025-07-25 18:42] LABS: Bacterial Vaginosis PCR Negative (NEGATIVE); Candida glabrata-krusei, PCR NOT DETECTED (NOT DETECT)
[2025-07-25 18:45] LABS: Candida Group, PCR DETECTED (NOT DETECT)
== END ==
LOC: LAB SHORT 15:40 → LAB 15:40
PROVIDERS: Obstetrics & Gynecology
DX: N76.0 Acute vaginitis (principal)
CPT/HCPCS: 81515

== ENCOUNTER → 2025-08-01 | Outpatient (CLI) | payer OTHER | END | disposition home or self-care (01) | LOC: LAB SHORT 13:45 → LAB 13:45 | DX: N76.0 Acute vaginitis (principal) | CPT/HCPCS: 87070; 87147; 87205 ==

== ENCOUNTER → 2025-09-01 | Outpatient (CLI) | payer OTHER ==
[2025-09-01 19:08] LABS: Bacterial Vaginosis PCR Negative (NEGATIVE); Candida Group, PCR NOT DETECTED (NOT DETECT); Candida glabrata-krusei, PCR NOT DETECTED (NOT DETECT)
== END ==
LOC: LAB 15:37 → LAB SHORT 15:37
PROVIDERS: Obstetrics & Gynecology
DX: N76.0 Acute vaginitis (principal)
CPT/HCPCS: 81515